=== PATIENT | male | born 1970 | race Two or more races ===

== ENCOUNTER 2020-04-29 15:35 | Emergency (ER) | payer OTHER ==
[~2020-04-29] VITALS: Ht 177.8 cm; Wt 102.1 kg
[2020-04-29] MEDS ORDERED: QUETIAPINE FUM100 MG PO (16:02)
[2020-04-29] MEDS ORDERED: MINIPRESS2 MG PO (16:04)
[2020-04-29] MEDS ORDERED: ZOLOFT25 MG PO (16:06)
[2020-04-29] MEDS ORDERED: FOLIC ACID0.8 M1 PO (16:39)
[2020-04-29] MEDS ORDERED: B-100 COMPLEX100 MG PO (16:39)
[2020-04-29] MEDS ORDERED: DICLOFENAC-MIS1 EAC1 PO (16:40)
[2020-04-29] MEDS ORDERED: CLARITIN-D 241 EACH PO (16:41)
[2020-04-29] MEDS ORDERED: KETO10TA2 PO (18:27)
== END 2020-04-29 18:39 | disposition home or self-care (01) ==
LOC: ER 15:35
DX: S93.491A Sprain of other ligament of right ankle, initial encounter (principal); W01.198A Fall on same level from slipping, tripping and stumbling with subsequent striking against other object, initial encounter; Y93.89 Activity, other specified; Y92.018 Other place in single-family (private) house as the place of occurrence of the external cause; Y99.8 Other external cause status